=== PATIENT | female | born 1980 | race Caucasian/White ===

== ENCOUNTER 2017-01-20 08:19 | Emergency (ER) | payer BC ==
[~2017-01-20] VITALS: Ht 167.6 cm; Wt 78.6 kg
[2017-01-20 08:22] VITALS: BP 137/90
[2017-01-20 09:05] LABS: BLOOD UREA NITROGEN 12 mg/dL (7-18)
[2017-01-20] MEDS ORDERED: ONDANSETRON ODT 4 MG PO ONE (10:30)
[2017-01-20] MEDS ORDERED: KETOROLAC 30 MG/1 ML IM ONE (10:30)
[2017-01-20] MEDS ORDERED: KETOROLAC 30 MG/1 ML ONE (10:47)
[2017-01-20] MEDS ORDERED: ONDANSETRON ODT 4 MG ONE (10:56)
== END 2017-01-20 11:48 | disposition home or self-care (01) ==
LOC: ED 11:30
DX: R10.32 Left lower quadrant pain (principal); F12.10 Cannabis abuse, uncomplicated; F17.210 Nicotine dependence, cigarettes, uncomplicated
CPT/HCPCS: 36415; 74176; 76830; 80048; 81001; 82040; 84703; 85025; 87086; 96372; 99285; J1885; Q0162

== ENCOUNTER 2018-03-29 16:36 | Emergency (ER) | payer BC, OTHER ==
[~2018-03-29] VITALS: Ht 167.6 cm; Wt 84.7 kg
[2018-03-29 16:41] VITALS: BP 121/84
[2018-03-29] MEDS ORDERED: IBUP-1623 PO (17:30)
== END 2018-03-29 18:11 | disposition home or self-care (01) ==
LOC: ED 17:39
DX: S93.402A Sprain of unspecified ligament of left ankle, initial encounter (principal); W18.39XA Other fall on same level, initial encounter; Y93.01 Activity, walking, marching and hiking; Y92.830 Public park as the place of occurrence of the external cause; Y99.8 Other external cause status
CPT/HCPCS: 99284